=== PATIENT | female | born 1960 | race African-American/Black ===

== ENCOUNTER 2024-11-05 14:58 | Emergency (ER) | payer MEDICARE, OTHER ==
[~2024-11-05] VITALS: Ht 154.9 cm; Wt 127.0 kg
[2024-11-05 16:38] VITALS: PULSE 66; RESP 16; TEMP 97.7; O2SAT 96
== END 2024-11-05 16:38 | disposition home or self-care (01) ==
LOC: FSED 15:05
DX: R20.2 Paresthesia of skin (principal); R07.89 Other chest pain; M25.532 Pain in left wrist; G89.29 Other chronic pain; E66.01 Morbid (severe) obesity due to excess calories
CPT/HCPCS: 80053; 82553; 84484; 85025; 93005; 99283